=== PATIENT | female | born 1980 | race African-American/Black ===

== ENCOUNTER 2017-09-05 04:53 | Inpatient (IN) | payer OTHER, MEDICAID ==
[2017-09-05] VITALS (14 sets, daily range): BP systolic 120–135; BP diastolic 77–83; PULSE 65–93; RESP 16–18; TEMP 97.8–98.4; O2SAT 99
[2017-09-05] MEDS: MORPHINE SULFATE 4 MG/ML INJ IV PUSH PRN ×2 (12:44→19:48)
[2017-09-05] MEDS ORDERED: RESP: ALBUTEROL 1.25 MG/3 ML NEB (PRN) NEB (13:45)
--- NOTE | 2017-09-05 13:46 | HHI.HP ---
[facility] Service [facility] Primary Care Physician Michael Figueroa M.D. Admission Diagnosis Diagnoses: Chief Complaint: Chest pain Travel History International Travel<30 Days: No Contact w/Intl Traveler <30 Da: No History of Present Illness 37-year-old black female being admitted for bilateral pulmonary emboli Patient was in her usual state of health until around 1 AM this morning when she woke up excruciating chest pain that was a 10/10 with shortness of breath. She took an albuterol treatment at home that slightly helped her shortness of breath. She also reported feeling some numbness in her left hand fingertips. Otherwise denies any other new symptoms. Denies any lower extremity swelling or pain. In the emergency department she had a CT angiogram done which showed bilateral pulmonary emboli in the lower lobes. EKG was obtained which I independently reviewed and see no changes concerning for ischemia nor infarction. Patient was administered morphine and Lovenox. Patient says that she follows with Dr. Figueroa was apparently her oncologist in [place]. Says she has been treated by him for about the past year, says that she receives chemotherapy 3 weeks on and then 1 week off, is currently entering her off week. She says that she was told that her cancer was in "remission" a few months ago when she last had an outpatient scan (likely CT) done. 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 EYES: No scleral icterus. No injection or drainage. ENT: No nasal bleeding or discharge. Mucous membranes pink and moist. CARDIOVASCULAR: Regular rate and rhythm. no murmurs RESPIRATORY: No accessory muscle use. Clear to auscultation. Breath sounds equal bilaterally, only slightly diminished in the bases. GASTROINTESTINAL: Abdomen soft, non-tender, nondistended. Extremities: No clubbing, cyanosis, or edema. No obvious deformities. MUSCULOSKELETAL: adequate muscle bulk and tone for age and habitus NEUROLOGICAL: Awake and alert. No obvious cranial nerve deficits. No facial droop nor slurred speech noted. PSYCHIATRIC: Appropriate mood and affect; insight and judgment normal. Caprini VTE Risk Assessment Caprini VTE Risk Assessment: Mod/High Risk (score >= 2) Caprini Risk Assessment Model Point Value = 1 Point Value = 2 Point Value = 3 Point Value = 5 Age 41-60 Minor surgery BMI > 25 kg/m2 Swollen legs Varicose veins or History of unexplained or recurrent spontaneous Oral contraceptives or hormone replacement Sepsis (< 1 month) Serious lung disease, including pneumonia (< 1 month) Abnormal pulmonary function Acute myocardial infarction Congestive heart failure (< 1 month) History of inflammatory bowel disease Medical patient at bed rest Age 61-74 Arthroscopic surgery Major open surgery (> 45 min) Laparoscopic surgery (> 45 min) Malignancy Confined to bed (> 72 hours) Immobilizing plaster cast Central venous access Age >= 75 History of VTE Family history of VTE Factor V Leiden Prothrombin [id number] Lupus anticoagulant Anticardiolipin antibodies Elevated serum homocysteine Heparin-induced thrombocytopenia Other congenital or acquired thrombophilia Stroke (< 1 month) Elective arthroplasty Hip, pelvis, or leg fracture Acute spinal cord injury (< 1 month) Prophylaxis Regimen Total Risk Factor Score Risk Level Prophylaxis Regimen 0-1 Low Early ambulation 2 Moderate Order ONE of the following: *Sequential Compression Device (SCD) *Heparin 5000 units SQ BID 3-4 Higher Order ONE of the following medications: *Heparin 5000 units SQ TID *Enoxaparin/Lovenox 40 mg SQ daily (WT < 150 kg, CrCl > 30 mL/min) *Enoxaparin/Lovenox 30 mg SQ daily (WT < 150 kg, CrCl > 10-29 mL/min) *Enoxaparin/Lovenox 30 mg SQ BID (WT < 150 kg, CrCl > 30 mL/min) AND/OR *Sequential Compression Device (SCD) 5 or more Highest Order ONE of the following medications: *Heparin 5000 units SQ TID (Preferred with Epidurals) *Enoxaparin/Lovenox 40 mg SQ daily (WT < 150 kg, CrCl > 30 mL/min) *Enoxaparin/Lovenox 30 mg SQ daily (WT < 150 kg, CrCl > 10-29 mL/min) *Enoxaparin/Lovenox 30 mg SQ BID (WT < 150 kg, CrCl > 30 mL/min) AND *Sequential Compression Device (SCD) Assessment and Plan Assessment and Plan 37-year-old white female admitted for chest pain Chest pain -Unlikely angina as the patient has obvious bilateral PEs on imaging w/ possible pulmonary infarction, monitor with telemetry -Trend cardiac enzymes, EKG negative -if pain improves and pt can ambulate w/o any worsening symptoms by tomorrow, no need to proceed further with any ACS/CAD workup Bilateral Pulmonary emboli w/ possible left sided pulmonary infarction -Likely secondary to hypercoagulable state secondary to cancer -We will treat with Lovenox weight based, anticipate discharging on novel oral anticoagulant -[place] as needed pain, morphine only for breakthrough pain Colon cancer with lung metastases -"in remission" per pt's narration from her oncologist, current CT findings may thus be likely indicative of resolving metastatic lesions or new lesions; nonetheless patient can follow-up with her oncologist as an outpatient with the CT findings relayed to him Lovenox Anticipate discharge on 09/06/17. Physician Certification 2 Midnight Certification Type: Admission for Inpatient Services Order for Inpatient Services The services are ordered in accordance with Medicare regulations or non- Medicare payer requirements, as applicable. In the case of services not specified as inpatient-only, they are appropriately provided as inpatient services in accordance with the 2-midnight benchmark. Estimated LOS (days): 2 2 days is the estimated time the patient will need to remain in the hospital, assuming treatment plan goals are met and no additional complications. Post-Hospital Plan: Not yet determined Elfego Prince MD Sep 05, 2017 13:46
[2017-09-05] MEDS ORDERED: LINA290C PO (13:55)
[2017-09-05] MEDS ORDERED: ASPIRIN 325 MG TAB PO ONE (17:30)
[2017-09-05] MEDS: ACETAMINOPHEN/HYDROcodone 325 MG/7.5 MG TAB PO PRN (17:30)
[2017-09-05] MEDS: ENOXAPARIN SODIUM 150 MG/ML SYRINGE SQ SCH (19:50)
[2017-09-06] VITALS (25 sets, daily range): BP systolic 105–147; BP diastolic 68–105; PULSE 69–100; RESP 16–18; TEMP 97.9–98.5; O2SAT 97–100
[2017-09-06] MEDS: ACETAMINOPHEN/HYDROcodone 325 MG/7.5 MG TAB PO PRN ×2 (03:14→09:54)
[2017-09-06 07:25] LABS: HEMATOCRIT 34.6 % (35.0-46.0); HEMOGLOBIN 11.5 GM/DL (11.6-15.3); MEAN CELL VOLUME 92.2 FL (80.0-100.0); MEAN CORPUSCULAR HEMOGLOBIN 30.7 PG (27.0-34.0); MEAN CORPUSCULAR HGB CONC 33.3 % (32.0-36.0); MEAN PLATELET VOLUME 7.2 FL (7.0-11.0); PLATELET COUNT 178 TH/MM3 (150-450); RED BLOOD COUNT 3.76 MIL/MM3 (4.00-5.30); RED CELL DISTRIBUTION WIDTH 19.8 % (11.6-17.2); WHITE BLOOD COUNT 5.4 TH/MM3 (4.0-11.0)
[2017-09-06] MEDS: ENOXAPARIN SODIUM 150 MG/ML SYRINGE SQ SCH ×2 (09:16→20:40)
[2017-09-06] MEDS: MORPHINE SULFATE 4 MG/ML INJ IV PUSH PRN (10:33)
[2017-09-06] MEDS ORDERED: LACTULOSE SYRUP 20 GM/30 ML CUP PO PRN (11:15)
[2017-09-06] MEDS ORDERED: SENNOSIDES 8.6 MG TAB PO PRN (11:15)
[2017-09-06] MEDS ORDERED: BISACODYL 10 MG SUPP RECTAL PRN (11:15)
[2017-09-06] MEDS ORDERED: MAGNESIUM HYDROXIDE SUSP 30 ML CUP PO PRN (11:15)
--- NOTE | 2017-09-06 11:19 | HHI.PR ---
Subjective Remarks Patient reports she continues to have significant pleuritic type pain whenever she takes a deep breath. Still requiring IV morphine. We reviewed her medical history again at length. She has known metastatic colon cancer to the liver and lungs with ongoing suppressive chemotherapy. Objective Vitals Vital Signs Date Time Temp Pulse Resp B/P (MAP) Pulse Ox O2 Delivery O2 Flow Rate FiO2 09/06/17 11:17 82 09/06/17 11:17 98.3 82 18 129/93 (105) 99 09/06/17 10:42 18 09/06/17 10:42 18 09/06/17 10:02 78 09/06/17 09:33 76 09/06/17 08:17 72 09/06/17 07:31 97.9 79 18 105/68 (80) 100 09/06/17 07:31 79 09/06/17 06:02 89 09/06/17 05:06 71 09/06/17 04:00 73 09/06/17 03:37 97.9 82 18 109/69 (82) 100 09/06/17 03:00 69 09/06/17 02:00 74 09/06/17 01:00 75 09/06/17 00:02 81 09/05/17 23:24 98.4 65 16 135/82 (99) 99 09/05/17 23:00 79 09/05/17 22:08 75 09/05/17 21:00 74 09/05/17 20:00 74 09/05/17 19:33 98.2 80 18 120/77 (91) 99 09/05/17 19:00 75 09/05/17 18:00 84 09/05/17 17:00 84 09/05/17 16:00 84 09/05/17 16:00 97.9 80 18 128/82 (97) 99 09/05/17 15:00 84 09/05/17 14:00 88 09/05/17 13:00 80 09/05/17 12:00 84 09/05/17 12:00 97.8 93 16 132/83 (99) 99 I/O 09/05/17 09/05/17 09/05/17 09/06/17 09/06/17 09/06/17 07:00 15:00 23:00 07:00 15:00 23:00 Intake Total 420 ml 500 ml Balance 420 ml 500 ml Intake Oral 420 ml 500 ml # Voids 2 3 # Bowel Movements 0 Result Diagram: 09/06/17 0503 Objective Remarks GENERAL: Morbidly obese female in no acute distress CARDIOVASCULAR: Normal rate and regular rhythm without murmurs, gallops, or rubs. RESPIRATORY: Respiratory effort is fair and limited due to pleuritic pain. Breath sounds equal and clear to auscultation bilaterally. GASTROINTESTINAL: Abdomen soft, non-tender, non-distended. Normal active bowel sounds MUSCULOSKELETAL: Extremities without cyanosis, or edema. NEURO: Alert & Oriented x4 to person, place, time, situation. Moves all ext x4 PSYCH: Appropriate mood and affect. A/P Problem List: (1) Bilateral pulmonary embolism ICD Code: I26.99 - Other pulmonary embolism without acute cor pulmonale Plan: Significant, bilateral pulmonary embolism with possible area of infarct in the patient with metastatic colon cancer. Hypercoagulable state from malignancy. Lovenox is indicated for the treatment of PE in such patients. Discussed with the patient that she can be discharged on Lovenox to follow-up outpatient with her oncologist at which point they may consider transitioning her to an oral agent in the future based on her clot burden. However at this time my recommendation is to treat with Lovenox. We discussed the current recommendations and she agreed to take Lovenox. Advised nursing to provide Lovenox teaching. Due to her weight, we will treat with twice daily dosing at 1 mg/kg every 12 hours. (2) Pleuritic chest pain ICD Code: R07.81 - Pleurodynia Plan: Secondary to above. Patient is currently not well controlled with [place]. We will change to Percocet at a higher dose. (3) Metastatic colon cancer in female ICD Code: C18.9 - Malignant neoplasm of colon, unspecified Plan: Patient is under the care of her oncologist in [place]. Currently receiving chemotherapy. She is advised to follow-up outpatient. Discharge Planning Anticipate discharge tomorrow morning once her pain is better controlled. Dakota Cheatham MD Sep 06, 2017 11:19
[2017-09-06] MEDS: oxyCODONE/ACETAMINOPHEN 10 MG/325 MG TAB PO PRN ×2 (17:25→23:42)
[2017-09-06] MEDS: DOCUSATE SODIUM 50 MG/SENNA 8.6 MG TAB PO SCH (20:40)
[2017-09-06] MEDS ORDERED: ENOX150P SQ (22:41)
[2017-09-06] MEDS ORDERED: OXYC1TAB36 PO (22:41)
[2017-09-06] MEDS ORDERED: PERI PO (22:41)
--- NOTE | 2017-09-06 22:46 | HHI.DCPOC ---
Discharge Care Plan Diagnosis: (1) Bilateral pulmonary embolism (2) Pleuritic chest pain (3) Metastatic colon cancer in female Goals to Promote Your Health * To prevent worsening of your condition and complications * To maintain your health at the optimal level Directions to Meet Your Goals Take your medications as prescribed Follow your dietary instruction Follow activity as directed Keep your appointments as scheduled Take your immunizations and boosters as scheduled If your symptoms worsen call your PCP, if no PCP go to Urgent Care Center or Emergency Room Smoking is Dangerous to Your Health. Avoid second hand smoke Call the 24-hour hour crisis hotline for domestic abuse at Dakota Cheatham MD Sep 06, 2017 22:46
[2017-09-07] VITALS (16 sets, daily range): BP systolic 128–131; BP diastolic 78–86; PULSE 72–100; RESP 16–18; TEMP 98–98.8; O2SAT 100
[2017-09-07] MEDS: MORPHINE SULFATE 4 MG/ML INJ IV PUSH PRN (00:59)
[2017-09-07] MEDS: ENOXAPARIN SODIUM 150 MG/ML SYRINGE SQ SCH (09:10)
[2017-09-07] MEDS: DOCUSATE SODIUM 50 MG/SENNA 8.6 MG TAB PO SCH (09:10)
--- NOTE | 2017-09-07 09:22 | HHI.DS ---
Dr. Henry Rodriguez Discharge Summary Admission Date Sep 05, 2017 at 11:29 Discharge Date: Sep 07, 2017 Admitting Diagnosis (1) Bilateral pulmonary embolism ICD Code: I26.99 - Other pulmonary embolism without acute cor pulmonale (2) Pleuritic chest pain ICD Code: R07.81 - Pleurodynia (3) Metastatic colon cancer in female ICD Code: C18.9 - Malignant neoplasm of colon, unspecified Procedures None Brief History - From Admission 37-year-old black female being admitted for bilateral pulmonary emboli Patient was in her usual state of health until around 1 AM this morning when she woke up excruciating chest pain that was a 10/10 with shortness of breath. She took an albuterol treatment at home that slightly helped her shortness of breath. She also reported feeling some numbness in her left hand fingertips. Otherwise denies any other new symptoms. Denies any lower extremity swelling or pain. In the emergency department she had a CT angiogram done which showed bilateral pulmonary emboli in the lower lobes. EKG was obtained which I independently reviewed and see no changes concerning for ischemia nor infarction. Patient was administered morphine and Lovenox. Patient says that she follows with Dr. Figueroa was apparently her oncologist in [place]. Says she has been treated by him for about the past year, says that she receives chemotherapy 3 weeks on and then 1 week off, is currently entering her off week. She says that she was told that her cancer was in "remission" a few months ago when she last had an outpatient scan (likely CT) done. CBC/BMP: 09/06/17 0503 Significant Findings Laboratory Tests Test 09/05/17 16:38 09/05/17 21:09 09/06/17 05:03 Troponin I LESS THAN 0.02 NG/ML LESS THAN 0.02 NG/ML Red Blood Count 3.76 MIL/MM3 (4.00-5.30) Hemoglobin 11.5 GM/DL (11.6-15.3) Hematocrit 34.6 % (35.0-46.0) Red Cell Distribution Width 19.8 % (11.6-17.2) Imaging CT of the chest with conclusion: 1. There is acute-appearing PE bilaterally in the lower lobe pulmonary arteries , left greater than right. Wedge-shaped subpleural opacity in the left lower lobe could represent pulmonary infarct. 2. A total of 7 noncalcified pulmonary nodules are identified in the lower lung zones bilaterally with the largest measuring 12 mm. Suggest correlating with any prior imaging studies that could confirm longer-term stability. Given the patient's history of colon cancer, these could represent metastatic lesions. If these are new finding consider further evaluation with PET/CT or consider percutaneous biopsy. PE at Discharge GENERAL: Morbidly obese female in no acute distress CARDIOVASCULAR: Normal rate and regular rhythm without murmurs, gallops, or rubs. RESPIRATORY: Respiratory effort is fair and limited due to pleuritic pain. Breath sounds equal and clear to auscultation bilaterally. GASTROINTESTINAL: Abdomen soft, non-tender, non-distended. Normal active bowel sounds MUSCULOSKELETAL: Extremities without cyanosis, or edema. NEURO: Alert & Oriented x4 to person, place, time, situation. Moves all ext x4 PSYCH: Appropriate mood and affect. Pt update on day of discharge No new issues. We discussed discharge planning and the need to follow-up outpatient. Lovenox teaching has been done. ARGELIA RN Hospital Course 37-year-old female treated for the following: (1) Bilateral pulmonary embolism ICD Code: I26.99 - Other pulmonary embolism without acute cor pulmonale Plan: Significant, bilateral pulmonary embolism with possible area of infarct in the patient with metastatic colon cancer. Hypercoagulable state from malignancy. Lovenox is indicated for the treatment of PE in such patients. Discussed with the patient that she can be discharged on Lovenox to follow-up outpatient with her oncologist at which point they may consider transitioning her to an oral agent in the future based on her clot burden. However at this time my recommendation is to treat with Lovenox. We discussed the current recommendations and she agreed to take Lovenox. Nursing provided Lovenox teaching. Due to her weight, we will treat with twice daily dosing at 1 mg/kg every 12 hours. (2) Pleuritic chest pain ICD Code: R07.81 - Pleurodynia Plan: Secondary to above. Pain medication changed to Percocet at a higher dose. She was discharged on a limited supply of pain medications and advised to follow-up outpatient with her oncologist and primary care. (3) Metastatic colon cancer in female ICD Code: C18.9 - Malignant neoplasm of colon, unspecified Plan: Patient is under the care of her oncologist in [place]. Currently receiving chemotherapy. She is advised to follow-up outpatient. Pt Condition on Discharge: Good Discharge Disposition: Discharge Home Discharge Time: > 30 minutes Discharge Instructions DIET: Follow Instructions for: As Tolerated, No Restrictions Activities you can perform: Regular-No Restrictions Follow up Referrals: Oncology New Medications: Enoxaparin Inj (Lovenox Inj) 150 Mg/Ml Syr 140 MG SQ Q12H, #60 INJECTION Oxycodone HCl/Acetaminophen (Oxycodone-Acetaminophen 10-325) 10 Mg-325 Mg Tablet 1 TAB PO Q6HR PRN for PAIN GREATER THAN 5, #20 TAB Sennosides-Docusate Sodium (Gnp Senna Plus 8.6-50 mg) 8.6 Mg-50 Mg Tab 1 TAB PO BID, #20 TAB For constipation. Stop this medication if you have diarrhea. Continued Medications: Linaclotide (Linzess) 290 Mcg Cap 290 MCG PO HS, CAP 0 Refills Dakota Cheatham MD Sep 07, 2017 09:22
[2017-09-07] MEDS: oxyCODONE/ACETAMINOPHEN 10 MG/325 MG TAB PO PRN (11:24)
== END 2017-09-07 13:05 | disposition home or self-care (01) | DRG 176 ==
LOC: NEDDLT 04:53 → HCIS 11:29
PROVIDERS: ADMIT Family Medicine; ATTEND Family Medicine
DX: I26.99 Other pulmonary embolism without acute cor pulmonale (principal); C78.00 Secondary malignant neoplasm of unspecified lung; C78.7 Secondary malignant neoplasm of liver and intrahepatic bile duct; D68.69 Other thrombophilia; E66.01 Morbid (severe) obesity due to excess calories; C18.9 Malignant neoplasm of colon, unspecified; R20.0 Anesthesia of skin; R07.81 Pleurodynia; Z87.891 Personal history of nicotine dependence
CPT/HCPCS: 84484; 85027; 94618; J1650; J2270